=== PATIENT | male | born 1950 | race Caucasian/White ===

== ENCOUNTER 2020-04-02 16:52 | Emergency (ER) | payer MEDICARE, OTHER ==
[2020-04-02 17:37] LABS: #Basophils 0.1 thou/uL (0.0-0.2); #Eosinphils 0.1 thou/uL (0.0-0.7); #Lymphocytes 1.7 thou/uL (1.20-3.40); #Monocytes 0.4 thou/uL (0.11-0.59); #Neutrophils 8.6 thou/uL (1.40-6.50); %Basophils 0.7 % (0.0-1.0); %Eosinophils 0.5 % (0.0-10.0); %Lymphocytes 15.8 % (21.0-51.0); %Monocytes 3.9 % (0.0-10.0); %Neutrophils 79.2 % (42.0-75.0); Hemoglobin 13.8 g/dL (14.0-18.0); Mean Corpuscular HGB CONC 31.1 g/dL (32.0-36.0); Mean Corpuscular Volume 90.1 fL (78.0-98.0); Mean Platelet Volume 7.2 fL (7.4-10.4); Platelet Count 256 thou/uL (130-400); RBC Distribution Width 11.3 % (11.5-14.5); Red Blood Cell (RBC) Count 4.94 mill/uL (4.70-6.10); White Blood Cell (WBC) Count 10.8 thou/uL (4.8-10.8)
[2020-04-02] MEDS ORDERED: Ondansetron PF 4 MG/2 ML Vial ONE (17:46)
[2020-04-02 17:53] LABS: ALT (SGPT) 29 U/L (8-55); AST (SGOT) 21 U/L (5-34); Alkaline Phosphatase 41 U/L (40-110); Anion Gap 17 mmol/L (10-20); BUN (Urea Nitrogen) 25 mg/dL (8.4-25.7); Bilirubin, Total 0.5 mg/dL (0.2-1.2); Calc. Creatinine Clearance 0 mL/min (70-130); Calcium 9.8 mg/dL (7.8-10.44); Carbon Dioxide 21 mmol/L (23-31); Chloride 107 mmol/L (98-107); Estimated GFR-MDRD 85; Globulin 3.3 g/dL (2.4-3.5); Glucose 115 mg/dL (80-115); Potassium 4.1 mmol/L (3.5-5.1); Protein, Total 8.3 g/dL (5.8-8.1); Sodium 141 mmol/L (136-145)
--- NOTE | 2020-04-02 21:34 | CT ---
CT BRAIN WITHOUT CONTRAST: Date: 04-02-2020 FINDINGS: A noncontrast CT shows normal sized ventricles with no shift. No intracranial bleeding, mass, or sign of edema was found. The ash white distention is good. Some mucosal thickening is seen in many of th e paranasal sinuses. The mastoid air cells are clear. IMPRESSION: No acute intracranial findings. Preliminary results called to Dr. Maynard at 1750 on 04-02-2020. POS: HOME
--- NOTE | 2020-04-02 21:35 | RAD ---
PORTABLE CHEST: Date: 04-02-2020 An AP portable film at 1748 is present with no prior films available for comparison. FINDINGS: The heart is normal in size for an AP film, age and body habitus. There is no vascular congestion or edema. No pleural effusions are seen. There is minor elevation of the left hemidiaphragm. No acute p ulmonary infiltrates were noted. IMPRESSION: No acute thoracic finding. POS: HOME
== END 2020-04-02 19:15 | disposition home or self-care (01) ==
LOC: BURERS 16:52
DX: E86.0 Dehydration (principal); R42 Dizziness and giddiness; M54.2 Cervicalgia; R29.700 NIHSS score 0; I10 Essential (primary) hypertension; E78.5 Hyperlipidemia, unspecified; Z87.891 Personal history of nicotine dependence; Z79.899 Other long term (current) drug therapy
CPT/HCPCS: 36415; 70450; 71045; 80053; 83605; 84443; 84484; 85025; 93005; 94760; 96361; 96374; J2405